=== PATIENT | male | born 1980 | race Caucasian/White ===

== ENCOUNTER 2018-04-21 11:04 | Emergency (ER) | payer OTHER ==
[~2018-04-21] VITALS: Ht 188 cm; Wt 139.3 kg
[2018-04-21] MEDS ORDERED: HYZAAR 100-251 EACH (11:15)
== END 2018-04-21 16:27 | disposition home or self-care (01) ==
LOC: ER 11:04
DX: N20.1 Calculus of ureter (principal)

== ENCOUNTER 2023-08-15 07:41 | Emergency (ER) | payer OTHER ==
[~2023-08-15] VITALS: Ht 188 cm; Wt 132.0 kg
[~2023-08-15 07:41] MED LIST: HYZAAR 100-251 EACH
[2023-08-15] MEDS ORDERED: JANUMET 50-1,01 EACH PO (08:01)
[2023-08-15] MEDS ORDERED: CANDESARTAN CILE4 MG PO (08:02)
[2023-08-15 09:16] LABS: HEMATOCRIT 44.8 % (39.0-48.0); HEMOGLOBIN 15.6 g/dL (13-16.00); MEAN CELL VOLUME 85.9 fL (80.0-100.00); MEAN CORPUSCULAR HEMOGLOBIN 29.9 pg (27.00-32.0); MEAN CORPUSCULAR HGB CONC 34.8 g/dl (32.0-36.0); PLATELET COUNT 254 K/uL (150-450); RED BLOOD COUNT 5.22 M/uL (4.00-6.00); RED CELL DISTRIBUTION WIDTH 13.5 % (11.5-14.5)
[2023-08-15 10:00] LABS: CALCIUM 9.1 mg/dL (8.5-10.1); CREATININE SERUM 1.08 mg/dL (0.70-1.30); GFR 73.94; POTASSIUM 3.91 mEq/L (3.5-5.1)
[2023-08-15 11:45] LABS: URINE APPEARANCE Clear; URINE BILIRRUBIN Negative (NEGATIVE); URINE BLOOD Moderate; URINE COLOR Yellow; URINE LEUKOCYTE Negative; URINE NITRATE Negative; URINE PROTEIN Negative (NEGATIVE); URINE UROBILINOGEN 0.2 E.U./dl
[2023-08-15 11:49] LABS: URINE BACTERIA 26.4 uL (0.0-1933); URINE EPITHELIAL CELLS 4.9 uL (0.0-38.8); URINE RBC 23.5 uL (0.0-20.8); URINE WBC 9.1 uL (0.0-23.2)
[2023-08-15 11:58] LABS: URINE GLUCOSE >=1000 MG/DL (NEGATIVE)
== END 2023-08-15 13:17 | disposition home or self-care (01) ==
LOC: ER 07:41
DX: N20.1 Calculus of ureter (principal)

== ENCOUNTER 2024-03-15 07:50 | Outpatient (CLI) | payer OTHER ==
[~2024-03-15 07:50] MED LIST changes: +CANDESARTAN CILE4 MG PO; +JANUMET 50-1,01 EACH PO
== END 2024-03-15 07:58 | disposition home or self-care (01) ==
LOC: SONOGRAMA 07:50
PROVIDERS: ATTEND Pathology Anatomic Pathology & Clinical Pathology
DX: D34 Benign neoplasm of thyroid gland (principal); E07.89 Other specified disorders of thyroid; E04.2 Nontoxic multinodular goiter